=== PATIENT | female | born 1950 | race Caucasian/White ===

== ENCOUNTER → 2016-11-06 08:13 | Outpatient (CLI) | payer MEDICARE, OTHER ==
[2014-10-06 14:24] VITALS: BMI 35.7
[~2016-11-06 08:13] MED LIST: ADVAIR 250/501 DISK INH; AMOXICILLIN500 M1 PO; BIAXIN 500 MG500 MG PO; CHERATUSSIN AC473 ML PO; HYDROCHLOROTHIA25 MG PO; PERCOCET 10/3251 TA1 PO; PRILOSEC20 MG PO; PRINIVIL20 MG PO; ZESTORETIC 20/21 TAB PO; ZESTRIL20 MG PO
== END | disposition home or self-care (01) ==
LOC: D.NM 08:13
DX: C7A.022 Malignant carcinoid tumor of the ascending colon (principal)

== ENCOUNTER → 2017-02-13 08:25 | Outpatient (CLI) | payer MEDICARE, OTHER ==
[2014-10-06 14:24] VITALS: BMI 35.7
== END | disposition home or self-care (01) ==
LOC: D.LAB 08:25
PROVIDERS: Family Medicine
DX: R19.7 Diarrhea, unspecified (principal)

== ENCOUNTER → 2017-04-24 12:17 | Outpatient (CLI) | payer MEDICARE, OTHER ==
[2014-10-06 14:24] VITALS: BMI 35.7
== END | disposition home or self-care (01) ==
LOC: D.RAD 12:17
DX: R13.12 Dysphagia, oropharyngeal phase (principal)

== ENCOUNTER → 2017-08-08 13:39 | Outpatient (CLI) | payer MEDICARE, OTHER ==
[2014-10-06 14:24] VITALS: BMI 35.7
== END | disposition home or self-care (01) ==
LOC: D.RAD 13:39
DX: R13.10 Dysphagia, unspecified (principal)

== ENCOUNTER → 2018-02-26 17:43 | Outpatient (CLI) | payer MEDICARE, OTHER ==
[2014-10-06 14:24] VITALS: BMI 35.7
== END | disposition home or self-care (01) ==
LOC: D.MAMMO 09:45
DX: Z12.31 Encounter for screening mammogram for malignant neoplasm of breast (principal)

== ENCOUNTER → 2018-05-15 15:52 | Outpatient (CLI) | payer MEDICARE, OTHER ==
[2014-10-06 14:24] VITALS: BMI 35.7
== END | disposition home or self-care (01) ==
LOC: D.US 15:52
DX: R60.0 Localized edema (principal); M79.605 Pain in left leg

== ENCOUNTER 2020-10-11 18:52 | Outpatient (CLI) | payer MEDICARE, OTHER ==
[2014-10-06 14:24] VITALS: BMI 35.7
== END 2020-10-11 23:59 | disposition home or self-care (01) ==
LOC: D.MAMMO 18:52
PROVIDERS: ATTEND Family Medicine
DX: Z12.31 Encounter for screening mammogram for malignant neoplasm of breast (principal)

== ENCOUNTER → 2020-11-30 20:43 | Outpatient (CLI) | payer MEDICARE, OTHER ==
[2014-10-06 14:24] VITALS: BMI 35.7
== END | disposition home or self-care (01) ==
LOC: D.LABREF 20:43
PROVIDERS: ATTEND Orthopaedic Surgery
DX: M17.12 Unilateral primary osteoarthritis, left knee (principal)

== ENCOUNTER 2021-01-18 05:30 | Inpatient (IN) | payer MEDICARE, OTHER ==
[2021-01-11 08:56] LABS: BASOPHILS 0.5 % (0-2); EOSINOPHILS 2.2 % (0-7); HEMATOCRIT 40.5 % (36.0-48.0); HEMOGLOBIN 13.6 g/dL (12-16); LYMPHOCYTES 23.4 % (15-50); MCH 30.2 pg (26.0-34.0); MCHC 33.5 g/dL (31.0-37.0); MCV 90.2 fL (80.0-100.0); MEAN PLATELET VOLUME 8.9 fL (7.4-10.4); NEUTROPHILS 68.9 % (40-80); RBC 4.49 10x6/uL (4.00-5.40); RDW 13.3 % (11.5-14.5); WBC 8.8 10x3/uL (4.8-10.8)
[2021-01-11 09:04] LABS: APTT 36.6 SECONDS (22.8-39.4); INR 1.02 (0.85-1.17); PLATELET COUNT 209 10x3/uL (130-400); PROTIME 12.4 SECONDS (11.6-15.0)
[2021-01-11 09:07] LABS: ANION GAP 13.2 mmol/L (8-16); CALCIUM 9.1 mg/dL (8.5-10.1); CARBON DIOXIDE 28.7 mmol/L (21.0-32.0); CREATININE - SERUM 1.3 mg/dL (0.6-1.3); POTASSIUM - SERUM 4.9 mmol/L (3.5-5.1)
[2021-01-11 12:52] LABS: BILIRUBIN NEGATIVE (NEGATIVE); KETONE NEGATIVE mg/dL (< 1+); NITRITE NEGATIVE (NEGATIVE); PH 5.5 (5.0-8.0); UROBILINOGEN NORMAL mg/dL (< 2)
[2021-01-18] VITALS (13 sets, daily range): BP systolic 97–118; BP diastolic 43–62; BMI 38.8; BMI 37.8
[~2021-01-18] VITALS: Ht 154.9 cm; Wt 90.7 kg
[2021-01-18] MEDS ORDERED: NORVASC2.5 MG PO (06:26)
[2021-01-18] MEDS ORDERED: MULTI-DAY VITAM1 TAB PO (06:26)
--- NOTE | 2021-01-18 08:24 | NUR ---
CAUTERY PAD PLACED ON RIGHT THIGH. PLASMA BLADE USED ON SETTING 6/8. AQUAMANTYS USED ON SETTING 170. CAUTERY PAD LOT#[id number] EXP. 06/20/2022
--- NOTE | 2021-01-18 13:35 | OP ---
PATIENT NAME: SHANA MOLINA MEDICAL RECORD: [id number] :48 LOCATION:D.[facility] [place].2229 ADMISSION DATE:01/18/21 SURGEON: MELO ROMAN DO DATE OF OPERATION: 01/18/2021 PROCEDURE PERFORMED: Left total knee arthroplasty. PREOPERATIVE DIAGNOSIS: Left knee osteoarthritis. POSTOPERATIVE DIAGNOSIS: Left knee osteoarthritis. INDICATIONS: Ms. Molina is a 70-year-old female who has had left knee pain for a long time. She wanted something done surgically as she had tried all nonoperative treatments. She was aware of the risks of this including infection, bleeding, damage to nerve and vessel, need for further surgery, continued pain, arthrofibrosis of the knee, loss of motion of the knee, fracture, failure of implants, loosening of implants, blood clots and even and signed a consent. SURGEON: Melo Roman DO DESCRIPTION OF PROCEDURE: The patient was given a block and spinal by anesthesia in the preoperative area. She was taken to the operative suite, laid in supine position, given light sedation. She was given 3 grams of Ancef, 80 mg of gentamicin and a gram of TXA. The left lower extremity was then prepped and draped in sterile fashion. Timeout was performed. Everyone was in agreeance with the correct side, site, patient and procedure. I then began by marking out an incision over the anterior knee, covered in Ioban. I then, with a 10-blade scalpel, made a careful dissection down to the capsule through the skin and then I used a fresh 10-blade, did a medial parapatellar approach and coagulated any vessels with Aquamantys as we went. I then everted the patella, removed part of the fat pad and milled down the patella and sized this to be a 29. I drilled the 3 holes for the patella. I then flexed the knee up into the femoral canal and cut the distal femur with the intramedullary guide after irrigating the hole that I drilled into the intramedullary canal. I then removed the femoral guide and exposed the tibia. Using extramedullary guide, cut 2 mm off the low spot on the medial side where I had pinned the guide into place and then removed that bone, brought to knee in extension, removed the menisci, coagulated any bleeding and then flexed the knee, sized the femur to be a 6. A 6, 4-in-1 cutting block was then pinned on and an batsheva wing was used to ensure there was no notching and there was not. I then cut through the 4-in-1 cutting block removed it and removed the bone. I then exposed the tibia, sized it to be an E, it was pinned into place and I put on the 6 femoral trial with a 10 poly in between, went to a 12. It fit very well and had good stability in varus and valgus stress in flexion, mid flexion and extension. I then drilled the lug holes for the femur, removed the femoral trial and a poly, and then reamed and punched the tibia and put extra holes in the tibia for the cement. That was then irrigated. We mixed the cement, put the cement in the tibia and on the implant, impacted into place, removed the excess cement and then impacted on the femur, put a poly trial in between and brought the knee in extension, irrigated out the patella, put cement in the patellar holes and on the implant and squeezed that into place, removed the excess cement from it and the tibia once it was in extension. I then used 10% povidone-iodine and 500 mL of normal saline solution, irrigated the knee out. I then injected the joint cocktail about the knee. I then irrigated that out with over a liter of normal saline. Once the cement was dried, we then OPERATIVE REPORT [id number] SHANA MOLINA trialed the 12, it fit very well and was very stable in varus valgus stress. We then removed the trial and put in the actual implant, squeezed it into place. I then irrigated one more time and put in Karli, vancomycin and tobramycin powder and closed the capsule with #1 Vicryl in [id number] fashion and then Contreras Delarosa, certified surgical first responder ran the capsule with Stratafix, closed the skin with 2-0 Vicryl in inverted interrupted fashion, put on ZipLine, Adaptic, 4 x 4s, ABD, Webril, Addy wrap and a KEIRA hose stocking. She was then awakened and taken to recovery in stable condition. Blood loss was approximately 200 mL. She was given another gram of TXA and taken to recovery in stable condition. COMPLICATIONS: None. TRANSINT:[id number] Voice Confirmation ID: [id number] DOCUMENT ID: [id number] MELO ROMAN DO at 1335 CC: [id number] DICTATION DATE: 01/18/21 1140 [place] MILL MIXER: 01/18/21 1307 ADM IN [facility] [address] [place] [address]
--- NOTE | 2021-01-18 13:39 | NUR ---
VITAL SIGNS UNOBTAINABLE DUE TO FAULTY MACHINE. [id number] UNABLE TO DOCUMENT
--- NOTE | 2021-01-18 21:00 | NUR ---
PT SITTING UP IN BED WITHOUT DISTRESS, AOX4. CPM TAKEN OFF AT THIS TIME. ASSISTED PT WITH WALKER TO BEDSIDE COMMODE AND BACK TO BED. PT DENIES PAIN AT THIS TIME. BED ALARM ON. ICE PACK APPLIED TO LEFT KNEE. DENIES NEEDS. CL IN REACH
[2021-01-19 04:43] VITALS: BP 97/47
[2021-01-19 06:28] LABS: ANION GAP 18.5 mmol/L (8-16); CALCIUM 7.7 mg/dL (8.5-10.1); CARBON DIOXIDE 20.3 mmol/L (21.0-32.0); CREATININE - SERUM 1.3 mg/dL (0.6-1.3); POTASSIUM - SERUM 4.8 mmol/L (3.5-5.1)
[2021-01-19 07:57] LABS: BASOPHILS 0.3 % (0-2); EOSINOPHILS 0.1 % (0-7); HEMATOCRIT 34.9 % (36.0-48.0); HEMOGLOBIN 11.3 g/dL (12-16); LYMPHOCYTES 6.8 % (15-50); MCH 29.6 pg (26.0-34.0); MCHC 32.4 g/dL (31.0-37.0); MCV 91.5 fL (80.0-100.0); MEAN PLATELET VOLUME 10.2 fL (7.4-10.4); MONOCYTES 5.4 % (2-11); NEUTROPHILS 87.4 % (40-80); RBC 3.82 10x6/uL (4.00-5.40); RDW 13.4 % (11.5-14.5); WBC 14.9 10x3/uL (4.8-10.8)
--- NOTE | 2021-01-19 08:19 | CN ---
PATIENT NAME:SHANA AZUL MEDICAL RECORD: [id number] : 48 LOCATION:[facility] [place] ADMIT DATE: 01/18/21 ACCOUNT: [id number] CONSULTING PHYSICIAN: RADHA MENCHACA MD REFERRING PHYSICIAN: ANNIE ROMAN DO DATE OF CONSULTATION: 01/18/2021 Consultation is requested by Annie Roman DO for medical management. HISTORY OF PRESENT ILLNESS: This is a 70-year-old female who was admitted by Dr. Roman for elective left total knee arthroplasty today. She is postop and currently her left leg is in the CPM machine. PAST MEDICAL HISTORY: Hypertension, reflux, osteoarthritis, and history of colon cancer. PAST SURGICAL HISTORY: She has had a cholecystectomy, oophorectomy, hysterectomy, cataract repair, and now left total hip arthroplasty. HOME MEDICATIONS: Diclofenac 50 mg twice a day, omeprazole 20 mg twice a day, potassium 10 mEq once a day, amlodipine 2.5 mg once a day, lisinopril with HCTZ 20/25 once a day, and vitamin D3 2000 units 1 a day. ALLERGIES: EGGS, ERYTHROMYCIN, AND TERRAMYCIN. HABITS: She has never smoked. No alcohol or drugs. FAMILY HISTORY: Father is . He had pancreatic cancer. Mother . She had ovarian cancer, but also diabetes, hypertension, and has had a stroke as well. SOCIAL HISTORY: She is and she is retired. REVIEW OF SYSTEMS: GENERAL: No major weight changes. HEENT: No particular sinus or allergy problems. RESPIRATORY: No history of asthma, emphysema. CARDIAC: No history of coronary artery disease. GASTROINTESTINAL: No diarrhea, constipation, or heartburn. GENITOURINARY: No significant problems there. MUSCULOSKELETAL: She has osteoarthritis hence the knee replacement today. NEUROLOGIC: No migraines or seizures. PSYCHIATRIC: Denies depression or melancholia. PHYSICAL EXAMINATION: VITAL SIGNS: Temperature 97.0, pulse 74, respirations 16, blood pressure 105/53. GENERAL: She is awake and alert. She does not appear to be in acute distress. SKIN: Warm and dry. HEENT: Grossly within normal limits. NECK: Supple. No JVD or bruit. HEART: Regular rate and rhythm. LUNGS: Clear. ABDOMEN: Soft, flat, nontender. EXTREMITIES: No edema. The left knee is in dressing and currently, the left CONSULT REPORT [id number] SHANA AZUL leg is on CPM machine. LABORATORY DATA: That was done preoperatively showed a normal CBC. Basic metabolic panel was normal except BUN a little elevated at 26. Her glucose was 206. Urinalysis was unremarkable and an INR was normal at 1.02. ASSESSMENT: 1. Hypertension. 2. Osteoarthritis, now status post left total knee arthroplasty. 3. Hyperglycemia with glucose of 206. PLAN: We will monitor her blood pressure. We will check a fasting glucose in a.m. Other tests and procedures as warranted. Thank you Dr. Roman for this consult and we will follow her as long as she is in the hospital. TRANSINT:[id number] Voice Confirmation ID: [id number] DOCUMENT ID: [id number] RADHA MENCHACA MD at 0819 CC: [id number] DICTATION DATE: 01/18/211908 STEERSMAN: 01/18/212015 ADM IN [facility] [address] [place] [address]
[2021-01-19 08:21] LABS: PLATELET COUNT 151 10x3/uL (130-400)
[2021-01-19 08:40] VITALS: BP 97/45
[2021-01-19 12:57] VITALS: BP 80/44
[2021-01-19 15:05] VITALS: Ht 154.9 cm; Wt 90.7 kg
[2021-01-19 16:17] VITALS: BP 102/34
[2021-01-19 17:36] VITALS: BP 112/33
[2021-01-19 19:56] VITALS: BP 94/49
--- NOTE | 2021-01-19 20:00 | NUR ---
PT SITTING UP IN BED WITHOUT DISTRESS, AOX4. CPM ON. DENIES NEEDS AT THIS TIME. CL IN REACH
[2021-01-20] VITALS: BP 101/30
[2021-01-20 04:00] VITALS: BP 112/40
--- NOTE | 2021-01-20 07:25 | NUR ---
recieved bedside report. in bed, arouses to voice. denies needs at this time. bed low position, call light in reach. will continue to monitor.
--- NOTE | 2021-01-20 08:03 | NUR ---
CPM OFF AT THIS TIME.
[2021-01-20 09:31] VITALS: BP 125/61
[2021-01-20] MEDS ORDERED: HYDROCODON-ACE1 EA10 PO (09:48)
[2021-01-20] MEDS ORDERED: ELIQUIS2.5 MG PO (09:48)
--- NOTE | 2021-01-20 09:54 | NUR ---
CHANGED DRESSING TO LEFT KNEE PER DR. ROMAN ORDERS. PATIENT TOLLERATED WELL.
[2021-01-20 12:11] VITALS: BP 121/53
--- NOTE | 2021-01-20 13:56 | MORECARE ---
CASE MANAGEMENT DISCHARGE SUMMARY PATIENT: SHANA AZUL UNIT: [id number] ADM DATE: 01/19/21 AGE: 70 : 49 SEX: F ROOM/BED: D.2229 AUTHOR: SUSAN,DOC PHYSICIAN: REFERRING PHYSICIAN: ANNIE ROMAN DO DATE OF SERVICE: 01/20/21 Case Management Discharge Planning Summary COMMENTS ENTERED DATE: 01/20/21 13:52 CT COMMENT TYPE: Discharge Planning REVIEWER: Tia Avila CM MET WITH PATIENT ABOUT DC PLANNING/NEEDS. STATES SHE HAS STAIRS AT HOME AND IS UNABLE TO USE THEM. SHE WOULD LIKE REHAB AT [place], I HAVE CALLED AND FAXED REFERRAL. HOPEFUL FOR REHAB ACCEPTANCE TODAY. CM TO FOLLOW AND ASSIST. DCP REVIEW SUMMARY ANTICIPATED D/C DATE: EXPECTED LOS : CASE STATUS: DCP Initiated INITIAL REVIEW: 01/18/2021 INITIAL REVIEWER: Tia Avila FINAL DISCHARGE DISPOSITION: : FINAL REVIEWER: FINAL REVIEW DATE: DCP [facility] Questions & Answers QUESTION: ANSWER : PATIENT: SHANA AZUL ENCOUNTER: [id number] MEDICAL RECORD#: [id number] ADMISSION DATE: 01/19/2021 DISCHARGE DATE: ATTENDING MD: ANNIE CARBONE : AGE: 70 MARITAL STATUS: D DC PLAN ID: [id number] FACILITY: [facility] PRINTED ON: 01/20/21 13:56 CT All edits/amendments must be made on the electronic document DICTATION DATE: 01/20/21 1356 LENS MOLDER: AMPARO 01/20/21 1356 RPT#: [id number] DC DATE: STATUS: ADM IN [facility] [address] [place] [address] END OF REPORT
[2021-01-20 17:23] VITALS: BP 150/76
--- NOTE | 2021-01-20 20:15 | NUR ---
RECEIVED BEDSIDE REPORT. RESTING IN BED WITH HOB ELEVATED AND CPM IN PLACE. ALERT AND ORIENTED X 4 NO S/S OF DISTRESS. UP WITH ASSISTANCE TO BATHROOM. NO C/O PAIN OR DISCOMFORT. EDUCATED CORRECTIONAL OFFICER CHIEF LIGHT AND NEEDS. CALL LIGHT IN REACH. BED LOCKED IN LOW POSITION.
--- NOTE | 2021-01-20 22:00 | NUR ---
CPM REMOVED AT THIS TIME. TOLERATED WELL. NO CONCERNS VOICED.
--- NOTE | 2021-01-21 07:47 | NUR ---
RECIEVED BEDSIDE REPORT. BED LOW POSITION, CALL LIGHT IN REACH. DENIES NEEDS AT THIS TIME. FREE FROM SIGNS OF DISTRESS. WILL CONTINUE TO MONITOR.
[2021-01-21 08:37] VITALS: BP 100/64
[2021-01-21 11:17] VITALS: BP 133/70
[2021-01-21 16:23] VITALS: BP 145/75
--- NOTE | 2021-01-21 19:00 | NUR ---
BEDSIDE REPORT RECEIVED AND CARE OF PT ASSUMED. PT LYING IN SUPINE POSITION WITH LEFT LEG IN CPM SINCE 1830. IV TO RIGHT WRIST PATENT WITH 1/2 NS INFUSING AT 50 ML/HR. LEFT PEDAL AND POPLITEAL PULSES PALPATED. LEFT FOOT AND LOWER LEG WARM AND PINK. WILL MONITOR [place] FOR NEEDS.
--- NOTE | 2021-01-21 19:40 | NUR ---
HS MEDICATIONS GIVEN TO INCLUDE NORCO PO PER REQUEST FOR ACHING INCISIONAL PAIN TO LEFT KNEE, PER PRN ORDER. WILL CONTINUE TO MONITOR FOR NEEDS.
[2021-01-21 20:00] VITALS: BP 142/68
--- NOTE | 2021-01-21 21:13 | NUR ---
CPM REMOVED PER ORDER TO STAY ON 3 HOURS. ASSISTED PT UP TO USE RESTROOM. POSITIONED FOR COMFORT.
--- NOTE | 2021-01-21 21:34 | NUR ---
SCD'S ON BLE PER ORDER.
[2021-01-22] VITALS: BP 150/62
[2021-01-22 04:00] VITALS: BP 120/70
[2021-01-22 06:25] LABS: BASOPHILS 0.5 % (0-2); HEMATOCRIT 33.3 % (36.0-48.0); HEMOGLOBIN 11.4 g/dL (12-16); LYMPHOCYTES 21.7 % (15-50); MCH 30.5 pg (26.0-34.0); MCHC 34.2 g/dL (31.0-37.0); MCV 89.1 fL (80.0-100.0); MEAN PLATELET VOLUME 9.4 fL (7.4-10.4); MONOCYTES 6.4 % (2-11); NEUTROPHILS 68.4 % (40-80); RBC 3.74 10x6/uL (4.00-5.40); RDW 13.4 % (11.5-14.5); WBC 9.1 10x3/uL (4.8-10.8)
[2021-01-22 06:50] LABS: PLATELET COUNT 195 10x3/uL (130-400)
[2021-01-22 07:16] LABS: ANION GAP 10.2 mmol/L (8-16); CALCIUM 8.7 mg/dL (8.5-10.1); CARBON DIOXIDE 30.4 mmol/L (21.0-32.0); CREATININE - SERUM 1.1 mg/dL (0.6-1.3); POTASSIUM - SERUM 4.6 mmol/L (3.5-5.1)
--- NOTE | 2021-01-22 07:56 | NUR ---
IN BED RESTING. AROUSES TO VOICE. DENIES NEEDS AT THIS TIME. BED LOW POSITION, CALL LIGHT IN REACH. WILL COTNINUE TO MONITOR.
[2021-01-22 08:27] VITALS: BP 137/70
[2021-01-22 12:54] VITALS: BP 135/84
[2021-01-22 16:43] VITALS: BP 127/81
[2021-01-22 20:00] VITALS: BP 145/63
--- NOTE | 2021-01-22 20:36 | NUR ---
HS MEDICATIONS GIVEN TO INCLUDE NORCO PO PER REQUEST FOR INCISIONAL PAIN AT LEVEL 8/10. WILL MONITOR FOR EFFECTIVENESS.
--- NOTE | 2021-01-23 02:06 | NUR ---
GAVE NORCO PO PER PT REQUEST FOR INCISIONAL PAIN AT LEVEL 8/10. WILL MONITOR FOR EFFECTIVENESS. SCD'S IN PLACE PER ORDER.
--- NOTE | 2021-01-23 02:45 | NUR ---
ASSISTED PT UP TO USE RESTROOM...SHE IS GETTING UP ON HER OWN WITH WALKER, WITH ONLY STANDBY ASSIST. POSITIONED BACK IN BED FOR COMFORT. WILL CONTINUE TO MONITOR FOR NEEDS.
[2021-01-23 04:00] VITALS: BP 135/78
[2021-01-23 05:53] LABS: ANION GAP 9.2 mmol/L (8-16); BASOPHILS 0.5 % (0-2); CALCIUM 8.6 mg/dL (8.5-10.1); CARBON DIOXIDE 31.1 mmol/L (21.0-32.0); CREATININE - SERUM 1.2 mg/dL (0.6-1.3); EOSINOPHILS 3.1 % (0-7); HEMATOCRIT 32.4 % (36.0-48.0); LYMPHOCYTES 20.8 % (15-50); MCH 30.2 pg (26.0-34.0); MCV 88.9 fL (80.0-100.0); MEAN PLATELET VOLUME 9.2 fL (7.4-10.4); MONOCYTES 7.5 % (2-11); NEUTROPHILS 68.1 % (40-80); PLATELET COUNT 217 10x3/uL (130-400); POTASSIUM - SERUM 4.3 mmol/L (3.5-5.1); RBC 3.65 10x6/uL (4.00-5.40); RDW 13.1 % (11.5-14.5); WBC 9.8 10x3/uL (4.8-10.8)
[2021-01-23 08:25] VITALS: BP 120/51
[2021-01-23 12:36] VITALS: BP 111/61
--- NOTE | 2021-01-23 14:00 | MORECARE ---
CASE MANAGEMENT DISCHARGE SUMMARY PATIENT: SHANA AZUL UNIT: [id number] ADM DATE: 01/19/21 AGE: 70 : 49 SEX: F ROOM/BED: D.2229 AUTHOR: SUSAN,DOC PHYSICIAN: REFERRING PHYSICIAN: ANNIE ROMAN DO DATE OF SERVICE: 01/23/21 Case Management Discharge Planning Summary COMMENTS ENTERED DATE: 01/20/21 13:52 CT COMMENT TYPE: Discharge Planning REVIEWER: Tia Avila CM MET WITH PATIENT ABOUT DC PLANNING/NEEDS. STATES SHE HAS STAIRS AT HOME AND IS UNABLE TO USE THEM. SHE WOULD LIKE REHAB AT [place], I HAVE CALLED AND FAXED REFERRAL. HOPEFUL FOR REHAB ACCEPTANCE TODAY. CM TO FOLLOW AND ASSIST. DCP REVIEW SUMMARY ANTICIPATED D/C DATE: EXPECTED LOS : CASE STATUS: DCP Initiated INITIAL REVIEW: 01/18/2021 INITIAL REVIEWER: Tia Avila FINAL DISCHARGE DISPOSITION: : FINAL REVIEWER: FINAL REVIEW DATE: DCP [facility] Questions & Answers QUESTION: ANSWER : PATIENT: SHANA AZUL ENCOUNTER: [id number] MEDICAL RECORD#: [id number] ADMISSION DATE: 01/19/2021 DISCHARGE DATE: ATTENDING MD: ANNIE CARBONE : AGE: 70 MARITAL STATUS: D DC PLAN ID: [id number] FACILITY: [facility] PRINTED ON: 01/23/21 14:00 CT All edits/amendments must be made on the electronic document DICTATION DATE: 01/23/211399 [place] ASSISTANT: AMPARO 01/23/21 1400 RPT#: [id number] DC DATE: STATUS: ADM IN [facility] [address] [place] [address] END OF REPORT
--- NOTE | 2021-01-23 16:16 | NUR ---
DISCHARGE INSTRUCTIONS REVIEWED AND SIGNED WITH PT, ALL QUESTIONS ANSWERED, PT VERBALIZED UNDERSTANDING, IV REMOVED, TIP INTACT, REPORT CALLED TO JUANIS WITH [facility], PT LEFT VIA WHEELCHAIR ASSISTED BY TRANSPORT IN STABLE CONDITION, NO SIGNS OF DISTRESS
--- NOTE | 2021-01-23 16:27 | MORECARE ---
CASE MANAGEMENT DISCHARGE SUMMARY PATIENT: SHANA AZUL UNIT: [id number] ADM DATE: 01/19/21 AGE: 70 : 49 SEX: F ROOM/BED: D.2229 AUTHOR: SUSAN,DOC PHYSICIAN: REFERRING PHYSICIAN: ANNIE ROMAN DO DATE OF SERVICE: 01/23/21 Case Management Discharge Planning Summary COMMENTS ENTERED DATE: 01/20/21 13:52 CT COMMENT TYPE: Discharge Planning REVIEWER: Tia Avila CM MET WITH PATIENT ABOUT DC PLANNING/NEEDS. STATES SHE HAS STAIRS AT HOME AND IS UNABLE TO USE THEM. SHE WOULD LIKE REHAB AT [place], I HAVE CALLED AND FAXED REFERRAL. HOPEFUL FOR REHAB ACCEPTANCE TODAY. CM TO FOLLOW AND ASSIST. DCP REVIEW SUMMARY ANTICIPATED D/C DATE: EXPECTED LOS : CASE STATUS: DCP Initiated INITIAL REVIEW: 01/18/2021 INITIAL REVIEWER: Tia Avila FINAL DISCHARGE DISPOSITION: : FINAL REVIEWER: FINAL REVIEW DATE: DCP [facility] Questions & Answers QUESTION: ANSWER : PATIENT: SHANA AZUL ENCOUNTER: [id number] MEDICAL RECORD#: [id number] ADMISSION DATE: 01/19/2021 DISCHARGE DATE: 01/23/2021 ATTENDING MD: ANNIE CARBONE : AGE: 70 MARITAL STATUS: D DC PLAN ID: [id number] FACILITY: [facility] PRINTED ON: 01/23/21 16:27 CT All edits/amendments must be made on the electronic document DICTATION DATE: 01/23/211626 MACHINE CASTINGS PLASTERER: AMPARO 01/23/211626 RPT#: [id number] DC DATE:01/23/21 STATUS: DIS IN [facility] [address] [place] [address] END OF REPORT
== END 2021-01-23 16:24 | DRG 470 ==
LOC: D.OPS 05:30 → D.MS 09:47 → D.OPS 10:06 → OBSVTIME 10:06 → D.MS 01-19 15:09
PROVIDERS: Family Medicine; ADMIT Orthopaedic Surgery; ATTEND Orthopaedic Surgery
PROC: 0SRD0J9 Replacement of Left Knee Joint with Synthetic Substitute, Cemented, Open Approach (ICD-10-PCS; principal; 2021-01-18 07:45)
DX: M17.12 Unilateral primary osteoarthritis, left knee (principal); I10 Essential (primary) hypertension; K21.9 Gastro-esophageal reflux disease without esophagitis; Z85.038 Personal history of other malignant neoplasm of large intestine; R73.9 Hyperglycemia, unspecified